=== PATIENT | female | born 1990 | race Caucasian/White ===

== ENCOUNTER 2023-10-11 03:52 | Day surgery (SDC) | payer OTHER ==
[2023-10-05 12:41] VITALS: BMI 30.2
[2023-10-11] MEDS ORDERED: BUPIVACAINE HCL/PF 0.25% (2.5MG/ML) 10 ML VIAL ONE ×2 (07:36→09:20)
[2023-10-11] MEDS ORDERED: PROPOFOL 20 ML ONE ×2 (08:00→08:38)
[2023-10-11] MEDS ORDERED: ACETAMINOPHEN INJECTION 100 ML IVPB ONE (08:01)
[2023-10-11] MEDS ORDERED: SEVOFLURANE 250 ML BTL ONE ×2 (08:01→09:31)
[2023-10-11] MEDS ORDERED: LIDOCAINE HCL/PF 2% SDV 5ML VIAL ONE (08:01)
[2023-10-11] MEDS ORDERED: FENTANYL CITRATE/PF 50 MCG/ML VIAL ONE ×9 (08:01→10:44)
[2023-10-11] MEDS ORDERED: ONDANSETRON 4 MG/2 ML VIAL ONE (08:01)
[2023-10-11] MEDS ORDERED: DEXAMETHASONE SOD PHOSPHATE 4 MG/1 ML VIAL ONE (08:01)
[2023-10-11] MEDS ORDERED: KETOROLAC TROMETHAMINE 30 MG/1 ML VIAL ONE (08:01)
[2023-10-11] MEDS ORDERED: MIDAZOLAM HCL 2 MG/2 ML SINGLE DOSE VIAL ONE ×3 (08:01→09:09)
[2023-10-11] MEDS ORDERED: PROMETHAZINE HCL 25 MG/1 ML VIAL IVPB PRN (08:07)
[2023-10-11] MEDS ORDERED: oxyCODONE HCL 5 MG TABLET PO PRN (08:07)
[2023-10-11] MEDS ORDERED: ONDANSETRON 4 MG/2 ML VIAL IVPUSH PRN (08:07)
[2023-10-11] MEDS ORDERED: LACTATED RINGERS SOLUTION 1,000 ML IV SCH (08:15)
[2023-10-11] MEDS ORDERED: HEPARIN NA (PORCINE) 5,000 UNITS/ML 1ML VIAL ONE (08:21)
[2023-10-11] MEDS: HEPARIN NA (PORCINE) 5,000 UNITS/ML 1ML VIAL SQ ONE (08:36)
[2023-10-11] MEDS ORDERED: cefOXitin SODIUM 2 GM VIAL (RESTRICTED TO ID) IVPB ONE (08:42)
[2023-10-11] MEDS: cefOXitin SODIUM 2 GM VIAL (RESTRICTED TO ID) IVPB ONE (08:43)
[2023-10-11] MEDS: BUPIVACAINE HCL/PF 0.25% (2.5MG/ML) 10 ML VIAL IJ ONE (08:53)
[2023-10-11 11:40] VITALS: RESP 18; TEMP 97.7
[2023-10-11] MEDS ORDERED: oxyCODONE HCL 5 MG TABLET ONE (11:46)
[2023-10-11] MEDS: oxyCODONE HCL 5 MG TABLET PO PRN (11:49)
[2023-10-11] MEDS ORDERED: BUPIVACAINE HCL/PF 0.5% (5MG/ML) 10 ML VIAL ONE (12:38)
[2023-10-11 16:00] VITALS: BP 118/64; PULSE 60
== END 2023-10-11 16:25 | disposition home or self-care (01) ==
LOC: JASU-SURG 03:52
PROVIDERS: ATTEND Surgery
PROC: 06BY0ZC Excision of Hemorrhoidal Plexus, Open Approach (ICD-10-PCS; principal; 2023-10-11 08:00)
DX: K64.3 Fourth degree hemorrhoids (principal)
CPT/HCPCS: 81025; 88304-TC; 94760; J0131; J1644